=== PATIENT | male | born 1965 | race African-American/Black ===

== ENCOUNTER 2022-12-28 03:57 | Emergency (ER) | payer OTHER ==
[~2022-12-28] VITALS: Ht 179.7 cm; Wt 63.0 kg
[2022-12-28 04:03] VITALS: TEMP 98.2
[2022-12-28 04:21] LABS: BASOPHILS % (AUTO) 0.5 % (0.0-2.0); EOSINOPHILS % (AUTO) 0.9 % (1.0-6.0); HEMATOCRIT 42.3 % (41-53); HEMOGLOBIN 14.4 g/dL (13.5-17.5); LYMPHOCYTES # (AUTO) 0.6 K/uL (1.0-4.8); LYMPHOCYTES % (AUTO) 10.7 % (22.0-44.0); MEAN CORPUSCULAR HEMOGLOBIN 30.5 pg (26.0-34.0); MEAN CORPUSCULAR VOLUME 90 fL (80-100); MONOCYTES # (AUTO) 0.5 K/uL (0.1-1.0); MONOCYTES % (AUTO) 9.9 % (2.0-9.0); NEUTROPHILS # (AUTO) 4.3 K/uL (1.8-7.7); PLATELET COUNT (AUTO) 191 K/uL (150-450); RED BLOOD CELL COUNT(AUTO) 4.72 MIL/uL (4.50-5.90); RED CELL DISTRIBUTION WIDTH 14.8 % (11.5-14.5)
[2022-12-28 04:31] LABS: ANION GAP 13 mmol/L (8-16); CALCIUM, TOTAL 9.8 mg/dL (8.8-10.5); CARBON DIOXIDE 25 mmol/L (22-29); CHLORIDE 98 mmol/L (98-107); CREATININE 1.05 mg/dL (0.60-1.30); GLOMERULAR FILTR. RATE CALC > 60 mL/min (>60); GLUCOSE,RANDOM 105 mg/dL (70-110); SODIUM SERUM 136 mmol/L (136-145)
[2022-12-28 04:55] LABS: ALANINE AMINOTRANSFERASE 29 U/L (12-78); ALBUMIN 4.2 g/dL (3.4-5.0); ALKALINE PHOSPHATASE 83 U/L (46-116); ASPARTATE AMINOTRANSFERASE 34 U/L (15-37); BILIRUBIN,TOTAL 0.9 mg/dL (0.1-1.0); CREATINE KINASE, TOTAL ONLY 602 U/L (39-308); TOTAL PROTEIN, SERUM 7.9 g/dL (6.4-8.2)
[2022-12-28 05:08] LABS: B-TYPE NATRIURETIC PEPTIDE 66 pg/mL (0-100)
[2022-12-28] MEDS ORDERED: PB/HYOSCY/ATR/SCOP/LIDO/MAALOX 55 ML BOTTLE PO ONE (07:00)
[2022-12-28 07:30] VITALS: BP 117/84; PULSE 61; RESP 14
[2022-12-28] MEDS ORDERED: HydrOXYzine PAMOATE 50 MG CAPSULE PO ONE (08:30)
[2022-12-28] MEDS ORDERED: ACETAMINOPHEN 500 MG TABLET PO ONE (08:30)
== END 2022-12-28 09:59 | disposition home or self-care (01) ==
LOC: EMS 03:59
DX: R07.89 Other chest pain (principal); F17.210 Nicotine dependence, cigarettes, uncomplicated; Z98.890 Other specified postprocedural states
CPT/HCPCS: 71045; 80053; 82550; 83880; 84484; 85025; 93005; 99285; 36415-L1; 36415-TC

== ENCOUNTER 2024-04-10 16:31 | Inpatient (IN) | payer OTHER ==
[~2024-04-10] VITALS: Ht 177.8 cm; Wt 58.7 kg
[2024-04-10 17:55] LABS: HEMATOCRIT 42.9 % (41-53); HEMOGLOBIN 14.3 g/dL (13.5-17.5); MEAN CORPUSCULAR HEMOGLOBIN 30.3 pg (26.0-34.0); MEAN CORPUSCULAR HGB CONC 33.4 G/dL (31.0-37.0); MEAN CORPUSCULAR VOLUME 91 fL (80-100); PLATELET COUNT (AUTO) 212 K/uL (150-450); RED BLOOD CELL COUNT(AUTO) 4.73 MIL/uL (4.50-5.90); RED CELL DISTRIBUTION WIDTH 13.9 % (11.5-14.5); WHITE BLOOD COUNT (AUTO) 3.5 K/uL (4.5-11.0)
[2024-04-10 18:09] LABS: ANION GAP 6 mmol/L (8-16); CALCIUM, TOTAL 9.1 mg/dL (8.8-10.5); CARBON DIOXIDE 28 mmol/L (22-29); CHLORIDE 101 mmol/L (98-107); CREATININE 0.88 mg/dL (0.60-1.30); GLOMERULAR FILTR. RATE CALC > 60 mL/min (>60); GLUCOSE,RANDOM 97 mg/dL (70-110); POTASSIUM 4.1 mmol/L (3.5-5.1); SODIUM SERUM 135 mmol/L (136-145); UREA NITROGEN, BLOOD 13 mg/dL (7-18)
[2024-04-10 18:14] LABS: TROPONIN I-HIGH SENSITIVITY Less Than 4 ng/L (<76)
[2024-04-10 18:16] LABS: ALANINE AMINOTRANSFERASE 28 U/L (12-78); ALBUMIN 3.7 g/dL (3.4-5.0); ALKALINE PHOSPHATASE 91 U/L (46-116); ASPARTATE AMINOTRANSFERASE 22 U/L (15-37); BILIRUBIN,TOTAL 0.5 mg/dL (0.1-1.0); LIPASE 40 U/L (16-77)
[2024-04-10 18:29] LABS: BAND NEUTROPHILS % (MANUAL) 2 % (0-5); LYMPHOCYTES % (MANUAL) 32 % (22-44); MONOCYTES % (MANUAL) 9 % (2-9); SEGMENTED NEUTROPHILS % 57 % (40-70); TOTAL CELLS COUNTED 100
[2024-04-10] MEDS: PB/HYOSCY/ATR/SCOP/LIDO/MAALOX 55 ML BOTTLE PO ONE (19:50)
[2024-04-10 20:23] LABS: TROPONIN I-HIGH SENSITIVITY Less Than 4 ng/L (<76)
[2024-04-10] MEDS: ASPIRIN 81 MG CHEWABLE TABLET PO SCH (22:30)
[2024-04-10] MEDS ORDERED: ACETAMINOPHEN 325 MG TABLET PO PRN (22:30)
[2024-04-10] MEDS: ATORVASTATIN CALCIUM 40 MG TABLET PO ONE (22:39)
[2024-04-10] MEDS: NITROGLYCERIN 0.4 MG SUBLINGUAL TABLET #25 SL ONE (22:59)
[2024-04-10] MEDS: HEPARIN SODIUM,PORCINE 5,000 UNITS/ML VIAL SQ SCH (23:07)
[2024-04-10 23:50] VITALS: BP 137/76; PULSE 54; RESP 18; TEMP 98.3; O2SAT 97
[2024-04-10 23:56] VITALS: BP 137/76; PULSE 55; RESP 18; TEMP 98.3; O2SAT 97
[2024-04-11] VITALS (13 sets, daily range): BP systolic 122–156; BP diastolic 71–96; PULSE 55–80; RESP 17–20; TEMP 98–98.8; O2SAT 97–100
[2024-04-11] MEDS: NITROGLYCERIN 0.4 MG SUBLINGUAL TABLET #25 SL PRN (01:14)
[2024-04-11 08:05] LABS: HEMOGLOBIN 14.8 g/dL (13.5-17.5); LYMPHOCYTES # (AUTO) 0.6 K/uL (1.0-4.8); MONOCYTES # (AUTO) 0.3 K/uL (0.1-1.0); PLATELET COUNT (AUTO) 214 K/uL (150-450); RED CELL DISTRIBUTION WIDTH 13.8 % (11.5-14.5)
[2024-04-11 08:13] LABS: ANION GAP 8 mmol/L (8-16); CALCIUM, TOTAL 8.7 mg/dL (8.8-10.5); CARBON DIOXIDE 29 mmol/L (22-29); CHLORIDE 96 mmol/L (98-107); CREATININE 0.86 mg/dL (0.60-1.30); GLOMERULAR FILTR. RATE CALC > 60 mL/min (>60); GLUCOSE,RANDOM 90 mg/dL (70-110); POTASSIUM 3.8 mmol/L (3.5-5.1); SODIUM SERUM 133 mmol/L (136-145); UREA NITROGEN, BLOOD 11 mg/dL (7-18)
[2024-04-11 08:20] LABS: TROPONIN I-HIGH SENSITIVITY 5 ng/L (<76)
[2024-04-11] MEDS: CARVEDILOL 3.125 MG TABLET PO SCH (08:20)
[2024-04-11] MEDS: DOCUSATE SODIUM 100 MG CAPSULE PO SCH (08:20)
[2024-04-11 08:31] LABS: BASOPHILS % (AUTO) 0.5 % (0.0-2.0); EOSINOPHILS % (AUTO) 0.2 % (1.0-6.0); HEMATOCRIT 44.4 % (41-53); LYMPHOCYTES % (AUTO) 15.3 % (22.0-44.0); MEAN CORPUSCULAR HEMOGLOBIN 30.5 pg (26.0-34.0); MEAN CORPUSCULAR HGB CONC 33.4 G/dL (31.0-37.0); MEAN CORPUSCULAR VOLUME 91 fL (80-100); MONOCYTES % (AUTO) 7.3 % (2.0-9.0); NEUTROPHILS # (AUTO) 3.1 K/uL (1.8-7.7); NEUTROPHILS % (AUTO) 76.7 % (40.0-70.0); RED BLOOD CELL COUNT(AUTO) 4.87 MIL/uL (4.50-5.90)
[2024-04-11] MEDS: ONDANSETRON HCL 4 MG/2 ML VIAL IVP PRN (10:06)
[2024-04-11] MEDS: PANTOPRAZOLE SODIUM 40 MG DR TABLET PO SCH (10:06)
[2024-04-11] MEDS ORDERED: SODIUM CHLORIDE 0.9% 100 ML ONE (15:39)
[2024-04-11] MEDS ORDERED: 0.9% SODIUM CHLORIDE 10 ML SYRINGE IVP ONE (15:39)
[2024-04-11] MEDS ORDERED: IOHEXOL 300 MG/ML 100 ML VIAL ONE (15:39)
[2024-04-11] MEDS: MethylPREDNISolone SOD SUCC 125 MG/2 ML VIAL IVP ONE (15:40)
[2024-04-11 18:09] LABS: PH,URINE DRUG SCREEN 7.5 (5.0-8.0)
[2024-04-11 18:16] LABS: ALCOHOL, URINE DRUG SCREEN NEGATIVE (NEGATIVE); AMPHET/METH SCREEN,URINE NEGATIVE (NEGATIVE); BARBITURATE SCREEN, URINE POSITIVE (NEGATIVE); BENZODIAZEPINES SCREEN,URINE NEGATIVE (NEGATIVE); CANNABINOID SCREEN,URINE POSITIVE (NEGATIVE); COCAINE SCREEN,URINE NEGATIVE (NEGATIVE); METHADONE SCREEN, URINE NEGATIVE (NEGATIVE); OPIATE SCREEN,URINE NEGATIVE (NEGATIVE); PHENCYCLIDINE SCREEN,URINE NEGATIVE (NEGATIVE)
[2024-04-11 19:02] LABS: ABG BASE EXCESS 0.5 mmol/L (-2.0-3.0); ABG CARBOXYHEMOGLOBIN 0.5 % (0.5-1.5); ABG HCO3 25.6 mmol/L (21.0-28.0); ABG METHEMOGLOBIN 0.2 % (0.0-1.5); ABG OXYGEN CONTENT 21.6 mL/dL (15.0-23.0); ABG OXYGEN SATURATION 98.6 % (94.0-98.0); ABG OXYHEMOGLOBIN 97.9 % (94.0-98.0); ABG PCO2 33 mmHg (35.0-48.0); ABG PH 7.476 (7.350-7.450); ABG TOTAL HEMOGLOBIN 15.6 G/dL (13.5-17.5); PO2, ARTERIAL BG 117.5 mmHg (83.0-108.0); SOURCE, BLOOD GAS ARTERIAL; TEMPERATURE, FAHRENHEIT, BG 98.2 FAHREN (96.0-98.6)
[2024-04-11 19:03] LABS: ALLEN TEST, BLOOD GAS Positive; O2 DEVICE,BLOOD GAS CANNULA (ROOM AIR); SITE, BLOOD GAS RT RADIAL
[2024-04-11] MEDS: ATORVASTATIN CALCIUM 40 MG TABLET PO SCH (20:39)
[2024-04-12 01:50] VITALS: BP 150/89; PULSE 70; RESP 18; O2SAT 100
[2024-04-12 06:00] VITALS: BP 159/101; RESP 18
[2024-04-12 06:30] VITALS: BP 147/88; PULSE 58; RESP 18; TEMP 98.5; O2SAT 100
[2024-04-12 06:41] LABS: ANION GAP 8 mmol/L (8-16); CALCIUM, TOTAL 9.2 mg/dL (8.8-10.5); CARBON DIOXIDE 24 mmol/L (22-29); CHLORIDE 99 mmol/L (98-107); CREATININE 0.94 mg/dL (0.60-1.30); GLOMERULAR FILTR. RATE CALC > 60 mL/min (>60); GLUCOSE,RANDOM 110 mg/dL (70-110); POTASSIUM 4.1 mmol/L (3.5-5.1); SODIUM SERUM 131 mmol/L (136-145); UREA NITROGEN, BLOOD 16 mg/dL (7-18)
[2024-04-12 08:04] VITALS: BP 155/100; PULSE 62; RESP 18; TEMP 98.8; O2SAT 100
[2024-04-12] MEDS: ISOSORBIDE MONONITRATE 60 MG ER TABLET PO SCH (10:10)
[2024-04-12 12:15] VITALS: BP 130/86; PULSE 62; RESP 17; TEMP 98; O2SAT 97
[2024-04-12] MEDS: ALBUTEROL SULFATE/IPRATROPIUM 100-20 MCG/SPRAY 4 GM INHALER IH SCH (13:47)
[2024-04-12 15:00] VITALS: BP 128/78; PULSE 63; RESP 18; TEMP 98.2; O2SAT 99
[2024-04-12] MEDS: ALBUTEROL SULFATE HFA 90 MCG/PUFF 8 GM INHALER IH PRN (16:17)
[2024-04-12] MEDS ORDERED: ALBU18HF7 IH (17:24)
[2024-04-12] MEDS ORDERED: PANT-31 PO (17:24)
[2024-04-12] MEDS ORDERED: ASPI-1450 PO (17:24)
[2024-04-12] MEDS ORDERED: IPRA4AER IH (17:24)
[2024-04-12] MEDS ORDERED: CARV3 PO (17:24)
[2024-04-12] MEDS ORDERED: NITR0.4T52 SL (17:24)
[2024-04-12] MEDS ORDERED: ATOR40TA71 PO (17:24)
[2024-04-12] MEDS ORDERED: PRED-729 PO (17:24)
[2024-04-12] MEDS ORDERED: ISOS60TA77 PO (17:24)
== END 2024-04-12 21:00 | disposition home or self-care (01) | DRG 203 ==
LOC: EMS 16:31 → EDH 22:24 → 5S 23:52
PROVIDERS: ADMIT Internal Medicine; ATTEND Internal Medicine
DX: R07.89 Other chest pain (principal); E43 Unspecified severe protein-calorie malnutrition; E87.1 Hypo-osmolality and hyponatremia; K21.9 Gastro-esophageal reflux disease without esophagitis; D72.819 Decreased white blood cell count, unspecified; F17.200 Nicotine dependence, unspecified, uncomplicated; Z68.1 Body mass index [BMI] 19.9 or less, adult
CPT/HCPCS: 36600; 71045; 71260; 80048; 80076; 80307; 82805; 83690; 83735; 84484; 85025; 93005; 93306; 99285; G0378; J1644; J2405; J2919; J3535; J7050; Q9967; 36415-L1; 36415-TC